=== PATIENT | male | born 1950 | race Caucasian/White ===

== ENCOUNTER → 2024-01-22 13:04 | Outpatient (REF) | payer MEDICARE, SELFPAY | LOC: HWRAD 13:04 | PROVIDERS: ATTENDING PHYSICIAN Physician Assistant | DX: Z00.01 Encounter for general adult medical examination with abnormal findings (principal); M89.9 Disorder of bone, unspecified | CPT/HCPCS: 73080 ==

== ENCOUNTER → 2024-04-15 12:33 | Outpatient (REF) | payer MEDICARE, SELFPAY | LOC: HWRAD 12:33 | PROVIDERS: ATTENDING PHYSICIAN Radiology Diagnostic Radiology; FAMILY PHYSICIAN Physician Assistant; REFERRING PHYSICIAN Specialist | DX: Z13.5 Encounter for screening for eye and ear disorders (principal) | CPT/HCPCS: 70030 ==

== ENCOUNTER → 2024-05-20 10:45 | Outpatient (REF) | payer MEDICARE, SELFPAY | LOC: MRI 3T 10:45 | PROVIDERS: ATTENDING PHYSICIAN Specialist; FAMILY PHYSICIAN Physician Assistant | DX: R97.20 Elevated prostate specific antigen [PSA] (principal) | CPT/HCPCS: 72197; A9575 ==

== ENCOUNTER → 2024-05-26 09:57 | Outpatient (REF) | payer MEDICARE, SELFPAY | LOC: HWRAD 09:57 | PROVIDERS: ATTENDING PHYSICIAN Physician Assistant | DX: M25.511 Pain in right shoulder (principal) | CPT/HCPCS: 73030 ==